=== PATIENT | male | born 1960 | race Caucasian/White ===

== ENCOUNTER 2018-11-11 07:02 | Emergency (ER) | payer OTHER ==
[~2018-11-11] VITALS: Ht 165.1 cm; Wt 70.0 kg
--- NOTE | 2018-11-11 07:40 | NUR ---
PT TO ROOM FROM LOBBY AT THIS TIME
--- NOTE | 2018-11-11 08:19 | NUR ---
PA at BS
--- NOTE | 2018-11-11 08:26 | NUR ---
GOWN GIVEN. ORIENTED TO ROOM FOR SAFETY
[2018-11-11] MEDS ORDERED: DIPHENHYDRAMINE 25 MG CAPSULE PO ONE (08:30)
[2018-11-11] MEDS ORDERED: DIPHENHYDRAMINE 25 MG CAPSULE ONE (08:47)
[2018-11-11] MEDS ORDERED: EPINEPHRINE 1 MG/ML, 1ML ONE (08:58)
[2018-11-11] MEDS ORDERED: EPINEPHRINE 1 MG/ML, 1ML IM ONE (09:00)
[2018-11-11] MEDS ORDERED: NITR0.4T28 SL (09:06)
[2018-11-11] MEDS ORDERED: ATOR20TA37 PO (09:06)
--- NOTE | 2018-11-11 09:18 | NUR ---
REPORT TAKEN FROM MINDI. PT MEDICATED PER EMAR. VSS. CALL LIGHT IN REACH. PT UPDATED ON POC.
--- NOTE | 2018-11-11 10:06 | NUR ---
PT RESTING IN [facility]. CRISTAL. VSS. CALL LIGHT IN REACH.
--- NOTE | 2018-11-11 10:31 | NUR ---
PT HAS REDUCED ANGIOEDEMA TO UPPER LIP. PT RESTING COMFORTABLY AND SATING IN THE HIGH 90'S RA. PLACED FOR RECHECK.
[2018-11-11 10:32] VITALS: BP 113/70
== END 2018-11-11 10:43 | disposition home or self-care (01) ==
LOC: ED 09:17
DX: T78.40XA Allergy, unspecified, initial encounter (principal); I10 Essential (primary) hypertension; E78.5 Hyperlipidemia, unspecified; X58.XXXA Exposure to other specified factors, initial encounter
CPT/HCPCS: 96372; 99283; J0171; J7512; Q0163